=== PATIENT | female | born 1955 | race Caucasian/White ===

== ENCOUNTER 2020-06-30 07:44 | Day surgery (SDC) | payer OTHER ==
[2020-06-27 09:59] VITALS: BMI 28.2
[2020-06-30] MEDS ORDERED: Acetaminophen 500 MG TAB ONE (08:15)
[2020-06-30] MEDS ORDERED: Ketorolac Tromethamine 30 MG/ML VIAL ONE (08:15)
[2020-06-30] MEDS ORDERED: Fentanyl 250 MCG/5 ML VIAL ONE (09:00)
[2020-06-30] MEDS ORDERED: Bupivacaine 0.25% HCL 30 ML VIAL ONE (10:13)
[2020-06-30] MEDS ORDERED: Lidocaine 1% w/Epinephrine 1:100K 20 ML VIAL ONE (10:13)
[2020-06-30] MEDS ORDERED: Midazolam HCl 2 mg/2 ml Vial ONE (10:34)
[2020-06-30] MEDS ORDERED: Ondansetron PF 4 MG/2 ML Vial ONE (11:39)
[2020-06-30] MEDS ORDERED: PROPOFOL 200 MG/20 ML VIAL ONE (11:39)
[2020-06-30] MEDS ORDERED: Glycopyrrolate 0.2 MG/ML 5 ML SYRINGE ONE (11:39)
[2020-06-30] MEDS ORDERED: Lidocaine 1% PF 5 ML VIAL ONE (11:39)
[2020-06-30] MEDS ORDERED: Dexamethasone 20 MG/5 ML VIAL ONE (11:39)
[2020-06-30] MEDS ORDERED: Rocuronium Bromide 10 MG/ML (10ML VIAL) ONE (11:39)
[2020-06-30] MEDS ORDERED: EPHEDRINE 25 MG/5 ML SYRINGE ONE (11:39)
[2020-06-30] MEDS ORDERED: HYDROcodone/Acetaminophen 5/325 mg Tablet ONE (14:38)
--- NOTE | 2020-07-01 13:27 | OP ---
DATE OF PROCEDURE: 06/30/2020 PREOPERATIVE DIAGNOSIS: Left inguinal hernia. POSTOPERATIVE DIAGNOSIS: Left inguinal hernia, indirect. PROCEDURE PERFORMED: Robotic left inguinal hernia repair using medium 3DMax mesh patch. ANESTHESIA: General endotracheal. INDICATIONS FOR PROCEDURE: The patient is a 65-year-old white female. She presents with easily visible and palpable left inguinal hernia. She was taken to the operating room at this time for repair. DESCRIPTION OF OPERATION: Informed consent was obtained. The patient was taken to the operating room, where general anesthesia was obtained with the patient in supine position. Husain catheter was placed. Abdomen was prepped with ChloraPrep and draped in sterile fashion. Local anesthetic was infiltrated using a mixture of 1% lidocaine with epinephrine, 0.25% Marcaine. An 11 mm supraumbilical incision was created, through which a Veress needle was passed into the peritoneal cavity and pneumoperitoneum was established using carbon dioxide up to pressure of 15 mmHg. An 11 mm balloon-tipped trocar port was passed into the abdominal cavity. The robotic camera was passed internally and under direct vision, 2 additional 8 mm robotic ports were placed, one on either side of midline at the supraumbilical level. Attention was turned inferiorly. The patient had no evidence of right inguinal hernia. She had an easily visible left inguinal hernia. There was fatty tissue herniated into this, that was easily reduced. A transverse peritoneal incision was created several centimeters superior to the hernia. Preperitoneal dissection was carried inferiorly. The pubic tubercle was identified on the medial aspect. The iliopubic tract was dissected laterally. In the central portion of the wound, the hernia sac was easily dissected. The round ligament was dissected and divided. The peritoneum was widely mobilized. There was a large volume of preperitoneal fat, that was herniated in the defect as well and this was all mobilized. A 3DMax medium patch was obtained and placed in the preperitoneal pocket. It was secured in place with 2 interrupted sutures of 2-0 Vicryl. One of these to the pubic tubercle and one to the anterior abdominal wall lateral to the epigastric vessels. The peritoneum was then closed with a running suture of 3-0 Stratafix. The fascial defect at the 11 mm port site was closed with 0 Vicryl suture using a GraNee needle. All ports and instruments were removed under direct vision. Pneumoperitoneum was carefully evacuated. 0.25% Marcaine with epinephrine infiltrated in each port site. Skin edges approximated with 4-0 Monocryl subcuticular suture, and Dermabond was placed externally. The patient tolerated the procedure well and was taken to recovery room in stable condition. Job ID: [id number]
== END 2020-06-30 15:25 | disposition home or self-care (01) ==
LOC: SDC 07:44
PROVIDERS: ATTEND Specialist
PROC: 0YU64JZ Supplement Left Inguinal Region with Synthetic Substitute, Percutaneous Endoscopic Approach (ICD-10-PCS; principal; 2020-06-30)
DX: K40.30 Unilateral inguinal hernia, with obstruction, without gangrene, not specified as recurrent (principal); E78.5 Hyperlipidemia, unspecified; E78.00 Pure hypercholesterolemia, unspecified; Z79.899 Other long term (current) drug therapy
CPT/HCPCS: C1781; J0690; J1100; J1885; J2250; J2405; J2704; J3010; S0020

== ENCOUNTER 2020-09-14 11:22 | Outpatient (CLI) | payer OTHER ==
--- NOTE | 2020-09-14 11:49 | RAD ---
Exam:4 views left knee HISTORY: Pain. COMPARISON: None FINDINGS: No evidence of a joint effusion. Joint spaces are preserved. No malalignment or fracture. IMPRESSION: No radiographic abnormality.
== END 2020-09-14 11:23 | disposition home or self-care (01) ==
LOC: BICRAD 11:22
PROVIDERS: ATTEND Family Medicine
DX: M25.562 Pain in left knee (principal)

== ENCOUNTER 2021-01-11 10:31 | Outpatient (CLI) | payer OTHER | END 2021-01-11 10:32 | disposition home or self-care (01) | LOC: BICMRI 10:31 | PROVIDERS: ATTEND Orthopaedic Surgery | DX: M71.22 Synovial cyst of popliteal space [Baker], left knee (principal); S83.242A Other tear of medial meniscus, current injury, left knee, initial encounter ==

== ENCOUNTER 2021-01-30 11:03 | Outpatient (CLI) | payer OTHER ==
[2021-01-30 13:16] LABS: #Basophils 0.1 10x3/uL (0.0-0.2); #Eosinphils 0.2 10x3/uL (0.0-0.5); #Monocytes 0.4 10x3/uL (0.0-1.1); %Basophils 0.8 % (0.0-2.0); %Eosinophils 1.7 % (0.0-6.0); %Lymphocytes 24.8 % (18.0-47.0); %Neutrophils 67.5 % (40.0-75.0); Hemoglobin 14.2 g/dL (12.0-15.5); Mean Corpuscular HGB CONC 32.9 g/dL (32.0-36.0); Mean Corpuscular Hemoglobin 29.5 pg (27.0-33.0); Mean Corpuscular Volume 89.4 fl (81.6-98.3); Mean Platelet Volume 9.5 fl (7.4-10.4); Platelet Count 321 10x3/uL (150-450); Red Blood Cell (RBC) Count 4.82 10x6/uL (3.90-5.03); White Blood Cell (WBC) Count 8.9 10x3/uL (3.5-10.5)
[2021-01-30 18:21] LABS: SARS-CoV-2 PCR by NAA Not Detected (NotDetected)
== END 2021-01-30 11:04 | disposition home or self-care (01) ==
LOC: LABBT 11:03
PROVIDERS: ATTEND Orthopaedic Surgery
DX: Z01.812 Encounter for preprocedural laboratory examination (principal); S83.232A Complex tear of medial meniscus, current injury, left knee, initial encounter; Z20.822 Contact with and (suspected) exposure to COVID-19
CPT/HCPCS: 85025; 87635; U0003; U0005

== ENCOUNTER 2021-02-02 06:27 | Day surgery (SDC) | payer OTHER ==
[2021-02-01 14:43] VITALS: BMI 28.7
[2021-02-02] MEDS ORDERED: Lidocaine 1% (PF) 30 ML VIAL ONE (07:02)
[2021-02-02] MEDS ORDERED: Bupivacaine 0.25% HCL 30 ML VIAL ONE (07:02)
[2021-02-02] MEDS ORDERED: EPINEPHrine 1 MG/ML AMP ONE (07:02)
[2021-02-02] MEDS ORDERED: Fentanyl 100 MCG/2 ML VIAL ONE (07:20)
[2021-02-02] MEDS ORDERED: Dexmedetomidine 200 MCG/2 ML VIAL ONE (07:21)
[2021-02-02] MEDS ORDERED: ePHEDrine Sulfate 50 MG/10 ML VIAL ONE (08:07)
[2021-02-02] MEDS ORDERED: Ondansetron PF 4 MG/2 ML Vial ONE (08:07)
[2021-02-02] MEDS ORDERED: Ketorolac Tromethamine 30 MG/ML VIAL ONE (08:07)
[2021-02-02] MEDS ORDERED: PROPOFOL 200 MG/20 ML VIAL ONE (08:07)
[2021-02-02] MEDS ORDERED: Dexamethasone 20 MG/5 ML VIAL ONE (08:07)
[2021-02-02] MEDS ORDERED: Lidocaine 1% PF 5 ML VIAL ONE (08:07)
[2021-02-02] MEDS ORDERED: HYDROcodone/Acetaminophen 5/325 mg Tablet ONE ×2 (12:38)
== END 2021-02-02 13:00 | disposition home or self-care (01) ==
LOC: SDC 06:27
PROVIDERS: ATTEND Orthopaedic Surgery
PROC: 0SBC4ZZ Excision of Right Knee Joint, Percutaneous Endoscopic Approach (ICD-10-PCS; principal; 2021-02-02)
DX: S83.231A Complex tear of medial meniscus, current injury, right knee, initial encounter (principal); M23.41 Loose body in knee, right knee; G43.709 Chronic migraine without aura, not intractable, without status migrainosus; E78.00 Pure hypercholesterolemia, unspecified; Z79.899 Other long term (current) drug therapy; X58.XXXA Exposure to other specified factors, initial encounter; Y93.01 Activity, walking, marching and hiking
CPT/HCPCS: J0171; J0690; J1100; J1885; J2001; J2405; J2704; J3010; S0020